=== PATIENT | female | born 1990 | race African-American/Black ===

== ENCOUNTER 2020-05-01 06:14 | Emergency (ER) | payer OTHER, BC, SELFPAY ==
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
[2020-05-01 06:18] VITALS: BP 148/101; PULSE 92; RESP 18; TEMP 36.8; O2SAT 100
--- NOTE | 2020-05-01 07:15 | PC.NURSE ---
Report taken from JUAN Solorio. Pt resting on stretcher with call light in reach.
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
[2020-05-01] MEDS: CYCLOBENZAPRINE HCL 10 MG TABLET PO (07:33)
[2020-05-01] MEDS: HYDROcodone/acetaminophen (*CRX) 5-325 MG TABLET 1 TAB PO (07:33)
[2020-05-01 07:37] VITALS: BP 138/94; PULSE 72; RESP 18; O2SAT 100
--- NOTE | 2020-05-01 07:38 | PC.NURSE ---
Pt to CT.
--- NOTE | 2020-05-01 07:56 | PC.NURSE ---
Pt returned to room from radiology. No change in pt condition noted.
[2020-05-01 08:49] VITALS: BP 134/98; PULSE 78; RESP 16; O2SAT 98
== END 2020-05-01 08:51 | disposition home or self-care (01) ==
PROVIDERS: Emergency Provider Emergency Medicine; PCP Registered Nurse
DX: S16.1XXA Strain of muscle, fascia and tendon at neck level, initial encounter (principal); J45.909 Unspecified asthma, uncomplicated; E28.2 Polycystic ovarian syndrome; Z87.440 Personal history of urinary (tract) infections; V43.52XA Car driver injured in collision with other type car in traffic accident, initial encounter
CPT/HCPCS: 70450; 72100; 72125; 99284; A9270

== ENCOUNTER 2021-01-03 20:30 | Emergency (ER) | payer BC, SELFPAY ==
[2021-01-03 20:31] VITALS: BP 143/101; PULSE 97; RESP 20; TEMP 36.3; O2SAT 96
--- NOTE | 2021-01-03 20:47 | ED.WOUNDLAC ---
HPI - Wound/Laceration General Chief Complaint: Wound/Laceration Stated Complaint: metal fence got me Time Seen by Provider: 01/03/21 20:35 Source: patient Mode of arrival: ambulatory Limitations: no limitations History of Present Illness HPI narrative: This is a 30-year-old female that presents to the emergency department for laceration to the left forearm sustained just prior to arrival. Reports she was helping her father build a fence and sustained a laceration from metal. She is unsure of her last tetanus vaccine. Reports bleeding to the area. Denies decreased range of motion or numbness. Related Data Home Medications Medication Instructions Recorded Confirmed albuterol sulfate 90 mcg/actuation 1 inhalation INHALATION Q4H 06/08/19 aerosol inhaler fluticasone 250 mcg-salmeterol 50 1 inhalation INHALATION BID 06/08/19 mcg/dose blistr powdr for inhalation ipratropium 0.5 mg-albuterol 3 mg 3 ml INHALATION QID PRN 06/08/19 (2.5 mg base)/3 mL nebulization soln montelukast 10 mg tablet 10 mg PO DAILY 06/08/19 Allergies Allergy/AdvReac Type Severity Reaction Status Date / Time fish derived Allergy Severe Hives Verified 01/03/21 20:34 White Fish Allergy Unknown Hives / Uncoded 06/01/18 04:51 Red Face Review of Systems Review of Systems: CONSTITUTIONAL: Denies fever SKIN: Reports laceration All systems reviewed & are unremarkable except as noted in HPI and below PMFSH Past Medical History Medical History Anxiety Asthma Bipolar 1 disorder Depression Eczema PCOS (polycystic ovarian syndrome) Pneumonia Skin lesion on buttock Tobacco abuse Upper respiratory tract infection UTI (urinary tract infection) Surgical History Surgical History History of surgical removal of skin lesion on buttock Family History Family History Mother Patient's mother is in good health Father Patient's father is Grandparent Family history of heart disease in male family member before age 55 Diabetes mellitus Social History Social History Smoking status: Never smoker Alcohol intake: never Gender identity (if verbalized by the patient): Female Exam Narrative: GENERAL: Well-appearing, well-nourished, and in no acute distress. HEAD: Normocephalic, atraumatic. EYES: EOMI EXTREMITIES: Normal range of motion. No edema. Left forearm with multiple superficial abrasions. Also with 3 cm linear laceration into subcutaneous tissue SKIN: Warm, dry, no rash. NEURO: No focal deficits. Alert and oriented x3. PSYCH: Normal mood and affect Course Vital Signs Vital signs: Vital Signs Temperature 97.3 F L 01/03/21 20:31 Pulse Rate 97 01/03/21 20:31 Respiratory Rate 20 01/03/21 20:31 Blood Pressure 143/101 H 01/03/21 20:31 Pulse Oximetry 96 01/03/21 20:31 Temperature 97.3 F L 01/03/21 20:31 Pulse Rate 97 01/03/21 20:31 Respiratory Rate 20 01/03/21 20:31 Blood Pressure 143/101 H 01/03/21 20:31 Pulse Oximetry 96 01/03/21 20:31 Procedures Laceration Laceration 1: Date: 01/03/21 Time: 21:29 Site: upper extremity Side (If applicable): left Size (cm): 3 Description: linear Depth: simple, single layer Local Anesthetic: lidocaine 1% and with epi Amount of anesthesia used (mL): 2 Pre-repair: irrigated ====== Skin Level ====== Skin layer closed with: nylon Size (cm): 4-0 Number of sutures: 3 Technique: simple, interrupted ====== Subcutaneous Layer ====== ====== Muscle Layer ====== ====== Tendon Layer ====== MDM - Wound/Laceration MDM Narrative Medical decision making narrative: Patient presents emergency de
--- NOTE | 2021-01-03 20:57 | PC.NURSE ---
Pt reports she accidentally cut her arm on a fence today. pt has well approximated lac to left dorsal lower arm approx. 7 cm. in length, covered c bandaid in place on arrival with dried bloody drainage. no active bleeding. Pt unsure of last tetanus shot. a/o x 4. no s/s of distress.
[2021-01-03] MEDS: TETANUS,DIPHTHERIA,AC PERTUSSIS ADULT (0.5 ML) BOOSTRIX IM (21:08)
== END 2021-01-03 22:11 | disposition home or self-care (01) ==
PROVIDERS: Emergency Provider Emergency Medicine; PCP Registered Nurse
DX: S51.812A Laceration without foreign body of left forearm, initial encounter (principal); W26.9XXA Contact with unspecified sharp object(s), initial encounter; Z23 Encounter for immunization
CPT/HCPCS: 12002; 90471; 90715; 99282

== ENCOUNTER → 2021-01-15 03:42 | Outpatient (CLI) | payer BC, SELFPAY ==
[2021-01-15 19:18] LABS: SARS-CoV-2 RNA PCR Negative
== END ==
PROVIDERS: PCP Registered Nurse; Visit Provider Registered Nurse
DX: R51.9 Headache, unspecified (principal); Z20.822 Contact with and (suspected) exposure to COVID-19
CPT/HCPCS: C9803; U0003; U0005

== ENCOUNTER 2021-05-26 06:14 | Emergency (ER) | payer BC, SELFPAY ==
--- NOTE | ~2021-05-26 | CT_ITS ---
EXAMINATION: CT brain wo con DATE: 05/26/2021 08:24 INDICATION: Headache and dizziness TECHNIQUE: Computed tomography (CT) of the head was performed without intravenous contrast. Sagittal and coronal reconstructions were performed. The mA was adjusted according to patient size. Iterative reconstruction technique was employed. The dose-length product was 681.00 mGy-cm. COMPARISON: 05/01/2020 FINDINGS: No acute intracranial hemorrhage, acute infarction or abnormal extra axial fluid collection. Ventricl es are normal and symmetric. No mass/mass effect. The orbits, paranasal sinuses and mastoid air cells are normal. IMPRESSION: 1. Normal head CT. Reviewed, dictated and finalized at location A. K DRIVER HELPER IMPRESSION: 1. Normal head CT.
[2021-05-26 06:34] VITALS: BP 106/60; PULSE 58; RESP 20; O2SAT 98
[2021-05-26 06:39] VITALS: TEMP 36.5
--- NOTE | 2021-05-26 07:26 | ECG_ITS ---
Measurements Intervals [place] Rate: 55 P: 42 SD: 190 QRS: 33 QRSD: 92 T: 31 QT: 447 QTc: 429 Interpretive Statements SINUS BRADYCARDIA WITH SINUS ARRHYTHMIA ATRIAL PREMATURE COMPLEXES BORDERLINE AV CONDUCTION DELAY BORDERLINE ECG Electronically Signed On 05-26-2021 8:48:59 VENEER MANUFACTURER by Hood Soria D.O.
--- NOTE | 2021-05-26 07:26 | ED.DIZZY ---
HPI - Dizziness General Chief Complaint: Dizziness Stated Complaint: dizziness Time Seen by Provider: 05/26/21 07:11 Source: patient Mode of arrival: ambulatory Limitations: no limitations History of Present Illness HPI Narrative: Patient is a 22-year-old female complaint of dizziness, accompanied by headache and nausea intermittent for the past 2 weeks. Patient currently denies any dizziness, nausea or headache. Patient denies any speech or visual disturbance, focal weakness or numbness, chest pain, shortness of breath, vomiting, fever or chills. Related Data Home Medications Medication Instructions Recorded Confirmed albuterol sulfate 90 mcg/actuation 1 inhalation INHALATION Q4H 06/08/19 aerosol inhaler fluticasone 250 mcg-salmeterol 50 1 inhalation INHALATION BID 06/08/19 mcg/dose blistr powdr for inhalation ipratropium 0.5 mg-albuterol 3 mg 3 ml INHALATION QID PRN 06/08/19 (2.5 mg base)/3 mL nebulization soln montelukast 10 mg tablet 10 mg PO DAILY 06/08/19 Allergies Allergy/AdvReac Type Severity Reaction Status Date / Time fish derived Allergy Severe Hives Verified 05/26/21 06:32 White Fish Allergy Unknown Hives / Uncoded 05/26/21 06:32 Red Face Review of Systems Review of Systems: All systems reviewed & are unremarkable except as noted in HPI and below Constitutional: Constitutional: Denies body ache(s), Denies chills, Denies excessive sweating, Denies fatigue, Denies fever(s), Denies headache(s), Denies lethargy, Denies malaise, Denies weakness and Denies weight loss Eyes: Eyes: Denies blurry vision, Denies change in vision and Denies loss of vision ENT: Denies dizziness, Denies ear discharge, Denies headache(s), Denies lip swelling, Denies epistaxis, Denies nasal congestion, Denies neck pain, Denies throat swelling and Denies tongue swelling Cardiovascular: Cardiovascular: Denies chest pain, Denies chest pain at rest, Denies chest pain with activity, Denies diaphoresis, Denies rapid heart rate, Denies edema, Denies irregular heart rhythm, Denies lightheadedness, Denies palpitations, Denies dyspnea and Denies dyspnea on exertion Respiratory: Respiratory: Denies chest congestion, Denies cough, Denies hemoptysis, Denies dyspnea and Denies dyspnea on exertion Gastrointestinal: Gastrointestinal: Denies abdominal pain, Denies melena, Denies hematochezia, Denies diarrhea, Denies vomiting and Denies hematemesis Musculoskeletal: Musculoskeletal: Denies abnormal gait, Denies deformity, Denies joint swelling, Denies limited range of motion, Denies neck pain and Denies numbness Neurologic: Denies Abnormal speech present, Denies abnormal gait, Denies confusion, Denies headache(s), Denies focal weakness, Denies loss of vision, Denies numbness, Denies Other visual disturbances, Denies Sensory deficit (Neuro) and Denies weakness Psychiatric: Psychiatric: Denies confusion, Denies depression, Denies auditory hallucinations, Denies homicidal ideation and Denies suicidal ideation Endocrine: Endocrine: Denies cold intolerance, Denies excessive sweating, Denies fatigue, Denies heat intolerance and Denies palpitations Hematologic/Lymphatic: Hematologic/Lymphatic: Denies easy bleeding and Denies easy bruising Allergic/Immunologic: Allergic/Immunologic: Denies lip swelling, Denies throat swelling and Denies tongue swelling PMFSH Past Medical History Medical History Anxiety Asthma Bipolar 1 disorder Depression Eczema PCOS (polycystic ovarian syndrome) Pneumonia Skin lesion on buttock Tobacco abuse Upper respiratory tract infection UTI (urinary tract infection) Surgical History Surgical History History of surgical removal of skin lesion on buttock Family History Family History Mother Patient's mother is in good health Father
[2021-05-26 07:42] LABS: Basophils Percent Auto 0.5 % (0.2-1.2); Eosinophils Absolute Auto 0.3 K/mm3 (0-0.3); Eosinophils Percent Auto 2.9 % (0-4.4); Hematocrit 39.1 % (37.0-47.0); Hemoglobin 13.1 g/dL (12.0-15.0); Immature Granulocyte Absolute 0.01 K/mm3 (0.00-0.031); Immature Granulocyte Percent A 0.1 % (0-0.5); Lymphocytes Absolute Auto 3.73 K/mm3 (0.9-3.2); Lymphocytes Percent Auto 42.6 % (18.3-44.2); Mean Corpuscular HGB Conc 33.5 g/dl (32-36); Mean Corpuscular Hemoglobin 30.4 pg (26-34); Mean Corpuscular Volume 90.7 fl (80-100); Mean Platelet Volume 8.8 fl (7.4-10.4); Monocytes Absolute Auto 0.9 K/mm3 (0.1-0.6); Monocytes Percent Auto 10.3 % (2.6-8.5); Neutrophils Absolute Auto 3.8 K/mm3 (1.3-6.7); Neutrophils Percent Auto 43.6 % (45.5-73.1); Platelet Count Result 461 k/mm3 (150-375); Red Blood Count 4.31 M/mm3 (4.2-5.4); White Blood Count 8.8 K/mm3 (4.5-10.0)
[2021-05-26 08:00] LABS: Anion Gap 10 mmol/L (8-16); Blood Urea Nitrogen 20 mg/dL (7-17); Calcium 9.1 mg/dL (8.4-10.2); Carbon Dioxide 22 mmol/L (22-30); Chloride 106 mmol/L (98-107); Estimated CRCL calculation 133 ml/min; Estimated Glomerular Filt Rate > 60; Glucose 101 mg/dL (65-110); Sodium 138 mmol/L (137-145)
[2021-05-26] MEDS: SODIUM CHLORIDE 0.9% IV 1,000 ML 999 ML IV CONT (08:36)
[2021-05-26] MEDS: MECLIZINE HCL 25 MG TABLET PO (08:36)
[2021-05-26] MEDS: PROMETHAZINE HCL 25 MG/ML AMPUL 12.5 MG IV PUSH (08:36)
[2021-05-26 08:38] VITALS: BP 142/80; PULSE 61; RESP 16; O2SAT 100
[2021-05-26 10:15] VITALS: BP 128/77; PULSE 78; RESP 20
== END 2021-05-26 10:15 | disposition home or self-care (01) ==
PROVIDERS: Emergency Provider Emergency Medicine; PCP Registered Nurse
DX: H81.10 Benign paroxysmal vertigo, unspecified ear (principal); J45.909 Unspecified asthma, uncomplicated; E28.2 Polycystic ovarian syndrome; Z87.01 Personal history of pneumonia (recurrent); Z87.440 Personal history of urinary (tract) infections; I49.1 Atrial premature depolarization
CPT/HCPCS: 36415; 70450; 80048; 81025; 85025; 93005; 96361; 96374; 99284; A9270; J2550; J7030

== ENCOUNTER 2022-04-15 11:42 | Emergency (ER) | payer OTHER, SELFPAY ==
--- NOTE | ~2022-04-15 | XR_ITS ---
XR lumbar spine 2-3V 04/15/2022 15:22 Indication: Low back pain. Radiculopathy. Procedure: 3 views lumbar spine Comparison: No prior studies for comparison. Findings: Vertebral body heights are maintained. Pedicles intact. No evidence for spondylolysis or sp ondylolisthesis. No fracture or traumatic malalignment. Impression: 1: No acute abnormality of the lumbar spine. Reviewed, dictated and finalized at location A. GEMENT SUPERVISOR Impression: 1: No acute abnormality of the lumbar spine.
[2022-04-15 11:53] VITALS: BP 136/78; PULSE 74; RESP 16; TEMP 36.9; O2SAT 99
--- NOTE | 2022-04-15 14:32 | ED.EXTPRO ---
HPI - Extremity Problem General Chief complaint: Extremity Problem,Nontraumatic Stated complaint: tingling to bilateral thighs Time Seen by Provider: 04/15/22 14:32 Source: patient Mode of arrival: ambulatory Limitations: no limitations History of Present Illness HPI Narrative: Patient is a 31-year-old female presenting to the emergency department for evaluation of lower back pain with radiation and tingling down the bilateral buttocks and thigh area. Patient denies any saddle anesthesia. No recent fall or injury. Patient has had symptoms intermittently for the past year, states that because the pain in both thighs and tingling sensation became severe today, patient decided to come to the emergency department. She has not sought care by any other physicians for her symptoms. She has been taking ibuprofen for 2 weeks with only some improvement in her symptoms. She denies difficulty with bowel or bladder, no bowel or bladder incontinence. She denies fever, chills, nausea, vomiting. She denies lower extremity weakness. She denies foot drop or difficulty with ambulation. Patient reports exacerbation of pain when leaning forwards. She reports heavy lifting daily at her job but denies inciting injury a year ago. Related Data Home Medications Medication Instructions Recorded Confirmed albuterol sulfate 90 mcg/actuation 1 inhalation inhalation Q4H 06/08/19 aerosol inhaler (ProAir HFA) fluticasone 250 mcg-salmeterol 50 1 inhalation inhalation BID 06/08/19 mcg/dose blistr powdr for inhalation (Advair Diskus) ipratropium 0.5 mg-albuterol 3 mg 3 ml inhalation QID PRN 06/08/19 (2.5 mg base)/3 mL nebulization soln montelukast 10 mg tablet 10 mg PO DAILY 06/08/19 Allergies Allergy/AdvReac Type Severity Reaction Status Date / Time fish derived Allergy Severe Hives Verified 05/26/21 06:32 White Fish Allergy Unknown Hives / Uncoded 05/26/21 06:32 Red Face Review of Systems Review of Systems: CONSTITUTIONAL: Denies fever, chills, or sweats. ENT: Denies rhinorrhea, congestion, sore throat, or otalgia. CARDIOVASCULAR: Denies chest pain, palpitations, or edema. RESPIRATORY: Denies cough or dyspnea. GASTROINTESTINAL: Denies abdominal pain, nausea, vomiting, or diarrhea. GENITOURINARY: Denies dysuria or hematuria. SKIN: Denies rash or itching. MUSCULOSKELETAL: Reports lower back pain, reports tingling to lateral aspect of both thighs. Denies foot pain or foot drop. NEUROLOGIC: Denies headache, numbness, or weakness. [facility] Past Medical History Medical History Anxiety Asthma Bipolar 1 disorder Depression Eczema PCOS (polycystic ovarian syndrome) Pneumonia Skin lesion on buttock Tobacco abuse Upper respiratory tract infection UTI (urinary tract infection) Surgical History Surgical History History of surgical removal of skin lesion on buttock Family History Family History Mother Patient's mother is in good health Father Patient's father is Grandparent Family history of heart disease in male family member before age 55 Diabetes mellitus Social History Social History Smoking status: Never smoker Alcohol intake: never Gender identity (if verbalized by the patient): Female Exam Narrative: GENERAL: Awake, alert, conversant HEAD: Normocephalic, atraumatic. EYES: PERRLA and EOMI. ENT: Nares clear, no rhinorrhea or epistaxis. Mucous membranes moist. NECK: Supple. CHEST: No respiratory distress, breathing even and non labored HEART: Regular rate, sinus rhythm ABDOMEN:Non distended, non tender Thorax: No midline cervical or midline thoracic tenderness. Patient has lumbar paraspinal tenderness bilaterally and bilateral SI joint tenderness that exactly reproduc
[2022-04-15] MEDS: ACETAMINOPHEN 500 MG TABLET 1000 MG PO (15:53)
[2022-04-15] MEDS: diazePAM (*CRX) 5 MG TABLET PO (15:54)
[2022-04-15] MEDS: KETOROLAC (*BKC) 60 MG/2 ML VIAL 30 MG IM (15:54)
== END 2022-04-15 16:06 | disposition home or self-care (01) ==
PROVIDERS: Emergency Provider Emergency Medicine; PCP Registered Nurse
DX: M54.16 Radiculopathy, lumbar region (principal); J45.909 Unspecified asthma, uncomplicated; E28.2 Polycystic ovarian syndrome; Z87.01 Personal history of pneumonia (recurrent); Z87.440 Personal history of urinary (tract) infections
CPT/HCPCS: 72100; 96372; 99283; A9270; J1100; J1885

== ENCOUNTER 2023-01-24 09:09 | Emergency (ER) | payer OTHER, SELFPAY ==
[2023-01-24] VITALS (21 sets, daily range): BP systolic 127–150; BP diastolic 57–98; PULSE 67–132; RESP 15–18; TEMP 36.4; O2SAT 97–100
--- NOTE | ~2023-01-24 | CT_ITS ---
EXAMINATION: CT abdomen pelvis w con DATE: 01/24/2023 12:03 INDICATION: Abdomen pain and diarrhea. TECHNIQUE: Computed tomography (CT) of the abdomen and pelvis was performed with 100 cc Omnipaque 350 intravenous contrast. The dose-length product was 1549.12 mGy-cm. Automated exposure control and ite rative reconstruction technique were employed. COMPARISON: CT dated 07/04/2012. FINDINGS: Lung bases are unremarkable. Heart size normal. Fatty infiltration of the liver. The spleen , pancreas, adrenal glands and kidneys are unremarkable. Small fat-containing umbilical hernia. Nonob structive bowel gas pattern. No significant vascular abnormality. There i multiple nonenlarged retrop eritoneal lymph nodes, likely reactive. No free air or free fluid. IMPRESSION: 1. No acute abdominal abnormality. 2: Hepatic steatosis. Reviewed, dictated and finalized at location B.
[2023-01-24 10:13] LABS: Basophils Absolute Auto 0.1 K/mm3 (0.0-0.1); Basophils Percent Auto 0.6 % (0.2-1.2); Eosinophils Absolute Auto 0.2 K/mm3 (0-0.3); Hematocrit 41.8 % (37.0-47.0); Hemoglobin 13.5 g/dL (12.0-15.0); Immature Granulocyte Absolute 0.02 K/mm3 (0.00-0.031); Immature Granulocyte Percent A 0.2 % (0-0.5); Lymphocytes Absolute Auto 2.68 K/mm3 (0.9-3.2); Lymphocytes Percent Auto 30.4 % (18.3-44.2); Mean Corpuscular HGB Conc 32.3 g/dl (32-36); Mean Corpuscular Hemoglobin 29.7 pg (26-34); Mean Corpuscular Volume 92.1 fl (80-100); Mean Platelet Volume 8.4 fl (7.4-10.4); Monocytes Absolute Auto 0.8 K/mm3 (0.1-0.6); Monocytes Percent Auto 8.5 % (2.6-8.5); Neutrophils Absolute Auto 5.1 K/mm3 (1.3-6.7); Neutrophils Percent Auto 58.3 % (45.5-73.1); Platelet Count Result 390 k/mm3 (150-375); Red Blood Count 4.54 M/mm3 (4.2-5.4); Red Cell Distribution Width 12.7 % (11.5-14.5); White Blood Count 8.8 K/mm3 (4.5-10.0)
--- NOTE | 2023-01-24 10:18 | ED.NAVMDI ---
HPI - Nausea/Vomiting/Diarrhea General Chief complaint: Nausea/Vomiting/Diarrhea Stated complaint: flu symptoms Time Seen by Provider: 01/24/23 09:52 Source: patient Mode of arrival: ambulatory Limitations: no limitations History of Present Illness HPI Narrative: This is a 32 year old female that presents to the ER for epigastric pain. Ongoing over the last couple of days. Associated with nausea, vomiting and diarrhea. Reports her stools have been darker than usual. She does report she has taken some pepto bismol. Reports lightheadedness and feeling dehydrated. Denies fever, dysuria or hematuria. Related Data Home Medications Medication Instructions Recorded Confirmed albuterol sulfate 90 mcg/actuation 1 inhalation inhalation Q4H 06/08/19 aerosol inhaler (ProAir HFA) fluticasone 250 mcg-salmeterol 50 1 inhalation inhalation BID 06/08/19 mcg/dose blistr powdr for inhalation (Advair Diskus) ipratropium 0.5 mg-albuterol 3 mg 3 ml inhalation QID PRN 06/08/19 (2.5 mg base)/3 mL nebulization soln montelukast 10 mg tablet 10 mg PO DAILY 06/08/19 Allergies Allergy/AdvReac Type Severity Reaction Status Date / Time fish derived Allergy Severe Hives Verified 01/24/23 09:56 White Fish Allergy Unknown Hives / Uncoded 01/24/23 09:56 Red Face Review of Systems Review of Systems: CONSTITUTIONAL: Denies fever GASTROINTESTINAL: Reports abdominal pain, nausea, vomiting, and diarrhea. GENITOURINARY: Denies dysuria or hematuria. All systems reviewed & are unremarkable except as noted in HPI and below PMFSH Past Medical History Medical History (Updated 01/24/23 @ 14:42 by Yumiko Waddell PA-C) Anxiety Asthma Bipolar 1 disorder Depression Eczema PCOS (polycystic ovarian syndrome) Pneumonia Skin lesion on buttock Upper respiratory tract infection UTI (urinary tract infection) Surgical History Surgical History History of surgical removal of skin lesion on buttock Family History Family History Mother Patient's mother is in good health Father Patient's father is Grandparent Family history of heart disease in male family member before age 55 Diabetes mellitus Social History Social History Smoking status: Never smoker Alcohol intake: never Gender identity (if verbalized by the patient): Female Exam Narrative: GENERAL: Well-appearing, well-nourished, and in no acute distress. HEAD: Normocephalic, atraumatic. EYES: EOMI. ENT: Nares clear, no rhinorrhea or epistaxis. Mucous membranes moist. Oropharynx without tonsillar hypertrophy exudate or other lesions. Bilateral TMs pearly tapia non-bulging NECK: Supple. No adenopathy or masses. CHEST: Clear to auscultation. No respiratory distress. No wheezes rales or rhonchi HEART: Regular rate and rhythm. No murmur heard. Normal peripheral pulses. ABDOMEN: Soft, nondistended, normal active bowel sounds. Tender to palpation in the epigastrium, without guarding EXTREMITIES: Normal range of motion. No edema. SKIN: Warm, dry, no rash. NEURO: No focal deficits. Alert and oriented x3. Normal gait PSYCH: Normal mood and affect RECTAL: No hemorrhoids or fissures noted. Hemoccult negative Course Course Emergency Course: Patient and family updated on work-up and agree with plan of care Vital Signs Vital signs: Vital Signs Temperature 97.6 F 01/24/23 09:42 Pulse Rate 67 01/24/23 09:42 Respiratory Rate 18 01/24/23 09:42 Blood Pressure 150/91 H 01/24/23 09:42 Pulse Oximetry 100 01/24/23 09:42 Oxygen Delivery Room Air 01/24/23 09:42 Temperature 97.6 F 01/24/23 09:42 Pulse Rate 99 01/24/23 12:59 Respiratory Rate 18 01/24/23 10:12 Blood Pressure 132/77 01/24/23 13:32 Pulse Oximetry 99 01/24/23 13:18 Oxygen Delivery Room
[2023-01-24] MEDS: SODIUM CHLORIDE 0.9% IV 1,000 ML 999 ML IV CONT ×2 (10:41→13:55)
[2023-01-24] MEDS: ONDANSETRON INJ 4 MG/2 ML VIAL IV PUSH (10:41)
[2023-01-24] MEDS: PANTOPRAZOLE SODIUM IV 40 MG VIAL IV PUSH (10:41)
[2023-01-24 10:43] LABS: Appearance Urine Cloudy (Clear); Bacteria Urine Rare /hpf; Bilirubin Urine Negative (Negative); Blood Urine Negative (Negative); Color Urine Yellow (Yellow); Glucose Urine UA Negative (Negative); Ketones Urine Negative (Negative); Leukocyte Esterase Ur Negative LEU/UL (Negative); Nitrate Urine Negative (Negative); Non Pathogenic Casts 0-2; Protein Urine Negative (Negative); Specific Grav Ur 1.022 (1.001-1.035); Squamous Epithelial Cell Urine None seen /hpf (Few); Urobilinogen Urine 0.2 mg/dL (<2.0); WBC Urine 0-5 /hpf; pH Urine 6.5 (5.0-9.0)
[2023-01-24 10:50] LABS: Add Urine Microscopic? YES
[2023-01-24 10:52] LABS: Influenza A QL RT-PCR Negative (Negative); Influenza B QL RT-PCR Negative (Negative); SARS-CoV-2 RNA PCR Negative (Negative)
[2023-01-24 11:44] LABS: Alanine Aminotransferase 25 U/L (6-35); Alkaline Phosphatase 73 U/L (38-126); Anion Gap 8 mmol/L (8-16); Aspartate Amino Transferase 22 U/L (14-36); Bilirubin,Total 0.3 mg/dL (0.2-1.3); Blood Urea Nitrogen 14 mg/dL (7-17); Calcium 8.9 mg/dL (8.4-10.2); Carbon Dioxide 25 mmol/L (22-30); Chloride 105 mmol/L (98-107); Estimated CRCL calculation 129 ml/min; Estimated Glomerular Filt Rate > 60; Glucose 99 mg/dL (65-110); Lipase 55 U/L (23-300); Potassium 4.3 mmol/L (3.4-5.0); Sodium 138 mmol/L (137-145)
--- NOTE | 2023-01-24 11:55 | PC.NURSE ---
pt leaving floor to CT @[id number]
[2023-01-24 12:03] LABS: Pregnancy On Board Control Positive; Urine Pregnancy Test Negative
--- NOTE | 2023-01-24 12:06 | PC.NURSE ---
pt back to floor from CT @[id number]
--- NOTE | 2023-01-24 12:10 | PC.NURSE ---
unable to complete orthostat bp readings at this time. pt has feeling of the room spinning and does not feel comfortable standing at this time. vitals wnl and provider notified.
[2023-01-24] MEDS: MECLIZINE HCL 25 MG TABLET PO (13:55)
== END 2023-01-24 14:54 | disposition home or self-care (01) ==
PROVIDERS: Emergency Provider Physician Assistant; PCP Registered Nurse
DX: R10.13 Epigastric pain (principal); R42 Dizziness and giddiness; Z79.51 Long term (current) use of inhaled steroids; J45.909 Unspecified asthma, uncomplicated; Z20.822 Contact with and (suspected) exposure to COVID-19
CPT/HCPCS: 36415; 74177; 80053; 81001; 81025; 83690; 85025; 87636; 96361; 96374; 96375; 99284; A9270; C9113; J2405; J7030; Q9967

== ENCOUNTER 2023-10-10 19:34 | Emergency (ER) | payer OTHER, SELFPAY ==
--- NOTE | ~2023-10-10 | XR_ITS ---
[id number] 10/10/2023 20:19 INDICATION: Left knee pain PROCEDURE: 2 views left knee COMPARISON: No prior studies for comparison. FINDINGS: Fracture, dislocation or subluxation is not identified. No significant joint effusion. Mild osteoarthritis. The soft tissues appear within normal limits. No foreign bodies are identified. IMPRESSION: 1: NO ACUTE BONE OR JOINT ABNORMALITY IDENTIFIED. Reviewed, dictated and finalized at location A.
[2023-10-10 19:52] VITALS: BP 136/82; PULSE 84; RESP 16; TEMP 36.2; O2SAT 100
--- NOTE | 2023-10-10 21:19 | ED.EXTPRO ---
HPI - Extremity Problem General Chief complaint: Extremity Problem,Nontraumatic Stated complaint: L knee pain Time Seen by Provider: 10/10/23 20:18 History of Present Illness HPI Narrative: He 33-year-old female presents emergency department for left knee pain for 3 days. 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 States she came home and took a nap and woke up with the pain to her left knee. Denies history of knee pain, any surgeries or procedures to her left knee. States she has on her feet a lot for her work. States it hurts when she bears item is her knee area she has not taken anything for pain. Denies any known injury or trauma. No fever. Related Data Home Medications Medication Instructions Recorded Confirmed albuterol sulfate 90 mcg/actuation 1 inhalation inhalation Q4H 06/08/19 aerosol inhaler (ProAir HFA) fluticasone 250 mcg-salmeterol 50 1 inhalation inhalation BID 06/08/19 mcg/dose blistr powdr for inhalation (Advair Diskus) ipratropium 0.5 mg-albuterol 3 mg 3 ml inhalation QID PRN 06/08/19 (2.5 mg base)/3 mL nebulization soln montelukast 10 mg tablet 10 mg PO DAILY 06/08/19 Allergies Allergy/AdvReac Type Severity Reaction Status Date / Time fish derived Allergy Severe Hives Verified 01/24/23 09:56 White Fish Allergy Unknown Hives / Uncoded 01/24/23 09:56 Red Face Review of Systems Review of Systems: CONSTITUTIONAL: Denies fever, chills, or sweats. EYES: Denies visual changes, redness, or discharge. ENT: Denies rhinorrhea, congestion, sore throat, or otalgia. CARDIOVASCULAR: Denies chest pain, palpitations, or edema. RESPIRATORY: Denies cough or dyspnea. GASTROINTESTINAL: Denies abdominal pain, nausea, vomiting, or diarrhea. GENITOURINARY: Denies dysuria or hematuria. SKIN: Denies rash or itching. MUSCULOSKELETAL: See HPI NEUROLOGIC: Denies headache, numbness, dizziness, or weakness. PSYCHIATRIC: Denies anxiety or depression. [facility] Past Medical History Medical History Anxiety Asthma Bipolar 1 disorder Depression Eczema PCOS (polycystic ovarian syndrome) Pneumonia Skin lesion on buttock Upper respiratory tract infection UTI (urinary tract infection) Surgical History Surgical History History of surgical removal of skin lesion on buttock Family History Family History Mother Patient's mother is in good health Father Patient's father is Grandparent Family history of heart disease in male family member before age 55 Diabetes mellitus Social History Social History Smoking status: Never smoker Alcohol intake: never Gender identity (if verbalized by the patient): Female Exam Narrative: GENERAL: Well-appearing, well-nourished, and in no acute distress. Obese with a BMI 51 HEAD: Normocephalic, atraumatic. EYES: PERRLA and EOMI. ENT: Nares clear, no rhinorrhea or epistaxis. CHEST: No respiratory distress. Clear to auscultation. No wheezes rales or rhonchi HEART: Regular rate and rhythm. No murmur heard. Normal peripheral pulses. MSK: RLE: Diffuse tenderness to the knee without obvious deformity or edema. No overlying erythema, no warmth to the knee. Limited active range of motion due to pain. Full passive range of motion. Pain with anterior drawer,, posterior drawer, there is an about the stress. No tenderness to the remainder of the lower extremity including hip and tib-fib. DP pulse 2 +. Sensation intact. SKIN: Warm, dry, no rash. NEURO: Alert and oriented x3. No focal deficits. PSYCH: Normal mood and affect. Course Vital Signs Vital signs: Vital Signs Temperature 97.2 F L 10/10/23 19:52 Pulse Rate 84 10/10/23 19:52 Respiratory Rate 16
[2023-10-10] MEDS: HYDROcodone/acetaminophen (*CRX) 5-325 MG TABLET 1 TAB PO (21:22)
== END 2023-10-10 21:45 | disposition home or self-care (01) ==
PROVIDERS: Emergency Provider Physician Assistant; PCP Registered Nurse
DX: M25.562 Pain in left knee (principal); J45.909 Unspecified asthma, uncomplicated; E28.2 Polycystic ovarian syndrome; Z87.01 Personal history of pneumonia (recurrent); Z87.440 Personal history of urinary (tract) infections; Z79.899 Other long term (current) drug therapy
CPT/HCPCS: 73560; 99283; A9270

== ENCOUNTER 2024-08-21 09:13 | Emergency (ER) | payer OTHER, SELFPAY ==
[2024-08-21 09:21] VITALS: BP 151/91; PULSE 57; RESP 18; TEMP 36.7; O2SAT 100
--- NOTE | 2024-08-21 09:43 | ECG_ITS ---
Test Date: 2024-08-21 09:55:59 Measurements Intervals [place] Rate: 55 P: 42 [place]: 182 QRS: 43 QRSD: 97 T: 46 QT: 451 QTc: 432 Interpretive Statements SINUS BRADYCARDIA WITH MARKED SINUS ARRHYTHMIA NORMAL ECG No previous ECG available for comparison Electronically Signed On 08-21-2024 10:16:25 CDT by Hood Soria D.O.
--- OUTSIDE RECORDS SUMMARY | 2024-08-21 09:56 | XMS_ITS | Encounter Summary ---
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 Legal Sex Female 7:15 PM CDT Gender Identity Not on file Sexual Orientation Not on file documented as of this encounter Plan of Treatment Not on file documented as of this encounter Visit Diagnoses Not on filedocumented in this encounter Additional Health Concerns Infection Onset Date Last Indicated Resolved Time COVID-19 Rule Out 01/13/2021 01/13/2021 01/20/2021 12:35 AM CDT COVID-19 Rule Out 09/02/2023 09/02/2023 09/02/2023 2:26 PM CDT documented as of this encounter Care Teams Regional Truck Driver Relationship Specialty Start Date End Date Samara Kirby APNP [address] [place] [id number] PCP - General NURSE PRACTITIONER 07/06/19 documented as of this encounter
--- OUTSIDE RECORDS SUMMARY | 2024-08-21 09:56 | XMS_ITS | Encounter Summary ---
Author Organization [facility] Address [address] [place] [address] Care Team Providers Care Blending Plant Operator Name Role Phone Samara Kirby Primary Care Provider [phone] Encounter Details Date Type Department Care Team (Late st Contact Info) Description 11/10/2022 MyChart Message Enc [facility] [address] [place], [place] [address] [employer], [facility] Provider Air Quality Message Social History Tobacco Use Types Packs/Day Years Used Date Smoking Tobacco: Never Smokeless Tobacco: Never Alcohol Use Standard Drinks/Week Comments No 0 (1 standard drink = 0.6 oz pur e alcohol) AUDIT-C Answer Date Recorded Frequency of Alcohol Consumption Never 08/03/2018 Average Number of Drinks Not on file 019 Frequency of Binge Drinking Not on file 07/15 PHQ-2 Answer Date Recorded PHQ-2 Score - If the patient scores above 3, please move on to questions 3-9 2 12/15/2021 Comments No Sex and Gender Information Value Date Recorded Sex Assigned at Female 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/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 Sex Female 7:15 PM CDT Gender Identity Not on file Sexual Orientation Not on file documented as of this encounter Plan of Treatment Not on file documented as of this encounter Visit Diagnoses Not on filedocumented in this encounter Additional Health Concerns Infection Onset Date Last Indicated Resolved Time COVID-19 Rule Out 09/02/2023 09/02/2023 09/02/2023 2:26 PM CDT Assessment Noted Time PHQ-9 Depression Total Score: 14 022 1:45 PM CDT documented as of this encounter Care Teams Blending Plant Operator Relationship Specialty Start Date End Date aSmara Kirby APNP [address] [place] [id number] PCP - General NURSE PRACTITIONER 07/06/19 documented as of this encounter
--- OUTSIDE RECORDS SUMMARY | 2024-08-21 09:56 | XMS_ITS | Clinical Summary ---
Author Organization [facility] Address [address] [address] Care Team Providers Care Contracts Attorney Name Role Phone Rahat Rosenberg MD Primary Care Provider [phone] Source Comments [facility],non-owned Affiliates and Associated Physician Practices is amultiple site organization consisting of ambulatory clinics and hospital sitesin [place], [place], [place] and [place]. This disclosure is being madepursuant to the Care Everywhere program and may not contain all information available regarding this patient. Last updated 18.[facility] Social History Tobacco Use Types Packs/Day Years Used Date Smoking Tobacco: Never Assessed Sex and Gender Information Value Date Recorded Sex Assigned at Not on file Gender Identity Not on file Sexual Orientation Not on file Last Filed Vital Signs Vital Sign Reading Time Taken Comments Blood Pressure 127/85 01/04/2013 10:32 PM CDT Pulse 63 01/04/2013 10:32 PM CDT Temperature 36.6 C (97.9 F) 01/04/2013 10:32 PM CDT Respiratory Rate 16 01/04/2013 10:32 PM CDT Oxygen Saturation 99% 01/04/2013 10:32 PM CDT Inhaled Oxygen Concentration - - Weight 113.4 kg (250 lb) 01/04/2013 10:32 PM CDT Height 162.6 cm (5' 4 ) 01/04/2013 10:32 PM CDT Body Mass Index 42.91 01/04/2013 10:32 PM CDT Plan of Treatment Health Maintenance Due Date Last Done Comments PAP SMEAR 1992 HIV SCREENING 2007 HEPATITIS C SCREENING 06/15/2010 DTAP/TDAP/TD VACCINES (1 - Tdap) 2011 HEPATITIS B VACCINE (1 of 3 - 19+ 3-dose series) 2011 COVID-19 VACCINE (1 - 2023-2 5 season) 2024 DEPRESSION SCREENING 05/16/2024 INFLUENZA VACCINE (Season Ended) 2025 ZOSTER VACCINE (1 of 2) 2042 HIB VACCINE Aged Out No longer eligi ble based on patient's age to complete this topic HPV VACCINE Aged Out No longer eligi ble based on patient's age to complete this topic MENINGOCOCCAL (Group B) VACC INE SHARED DECISION-MAKING Aged Out No longer eligibl e based on patient's age to complete this topic MENINGOCOCCAL GROUPS A/C/Y/W VACCINE Aged Out No longer eligible b ased on patient's age to complete this topic PNEUMOCOCCAL VACCINE Aged Out No long er eligible based on patient's age to complete this topic Care Teams Contracts Attorney Relationship Specialty Start Date End Date Rahat Rosenberg MD [address] [place] [id number] PCP - General 02/12/22
--- OUTSIDE RECORDS SUMMARY | 2024-08-21 09:56 | XMS_ITS | Encounter Summary ---
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
--- OUTSIDE RECORDS SUMMARY | 2024-08-21 09:56 | XMS_ITS | Encounter Summary ---
Author Organization [facility] Address [address] [place] [address] Care Team Providers Care General Foreman Name Role Phone Samara Kirby Primary Care Provider [phone] Encounter Details Date Type Department Care Team (Late st Contact Info) Description 07/26/2024 Liquid Health Labst Message Enc [facility] Medical [facility] Family & Internal Medicine [facility] [address] [place] [address] Samara Kirby APNP [facility] [place], [place] [id number] Mammogram Social History Tobacco Use Types Packs/Day Years Used Date Smoking Tobacco: Never Smokeless Tobacco: Never Alcohol Use Standard Drinks/Week Comments No 0 (1 standard drink = 0.6 oz pur e alcohol) AUDIT-C Answer Date Recorded Frequency of Alcohol Consumption Never 08/03/2018 Average Number of Drinks Not on file 019 Frequency of Binge Drinking Not on file 07/15 PHQ-2 Answer Date Recorded Patient Health Questionnaire-2 Score 0 07/11/2024 Comments No Sex and Gender Information Value Date Recorded Sex Assigned at Female 07/11/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
--- OUTSIDE RECORDS SUMMARY | 2024-08-21 09:56 | XMS_ITS | Clinical Summary ---
Author Organization [facility] Address [address] [place] [address] Care Team Providers Care Rag Production Worker Name Role Phone Aubrey Kirby Primary Care Provider [phone] Allergies Active Allergy Reactions Criticality Noted Date Comments Fish-Derived Products Hives 07/25/2020 Medications montelukast 10 MG tabletIndications: Moderate persistent asthma without complication (HHS/HCC),Seasonal allergies Take 1 tablet (10 mg total) by mouth every evening. 90 tablet 07/26/19 21 Active Insulin Pen Needle (PEN NEEDLES) 31G X 5 MM MiscIndications:BM I 45.0-49.9, adult ([facility]),Class 3 severe obesity due to excess calories without serious comorbidity with body mass index (BMI) of 45.0 to 49.9 in adult ([facility]) Use daily with saxenda 100 each 1 10/22/19 21 Active Additional Information Patient not taking.Reported on 07/11/2024 fluticasone-salmet nelda (ADVAIR DISKUS) 250-50 MCG/ACT inhalerIndications :Moderate persistent asthma without complication (HHS/HCC) Inhale 1 puff into the lungs 2 (two) times daily. 1 each 3 06/16/19 24 Active triamcinolone (KENALOG) 0.1 % ointmentIndication s:Dermatitis Apply topically 2 (two) times daily. 80 g 03/23/20 24 Active albuterol sulfate HFA (PROAIR HFA) 108 (90 Base) MCG/ACT inhalerIndications :Moderate persistent asthma without complication (HHS/HCC) Inhale 2 puffs into the lungs every 6 (six) hours as needed for Wheezing. 18 g 2 03/23/20 24 Active ondansetron (ZOFRAN-ODT) 4 MG disintegrating tabletIndications: Nausea Take 1 tablet (4 mg total) by mouth every 8 (eight) hours as needed for Nausea. 20 tablet 05/03/20 24 Active ipratropium-albute rol (DUONEB) 0.5-2.5 (3) MG/3ML SolutionIndication s:Moderate persistent asthma without complication (HHS/HCC) USE 1 AMPULE IN NEBULIZER TWICE DAILY NEEDED 360 mL 05/03/20 24 Active doxycycline hyclate (VIBRAMYCIN) 100 MG capsuleIndications :Hidradenitis suppurativa Take 1 capsule (100 mg total) by mouth daily. 30 capsule 2 05/03/20 24 Active fluticasone propionate (FLONASE) 50 MCG/ACT nasal sprayIndications:S easonal allergies 2 sprays by Each Nostril route daily. 15.8 mL 1 08/11/19 25 Active methylPREDNISolone , KIMBERLY, (MEDROL DOSEPAK) 4 MG tabletIndications: Seasonal allergies,Chest congestion 6 TABLETS ON DAY ONE, 5 TABLETS DAY TWO, 4 TABLETS DAY THREE, 3 TABLETS DAY FOUR, 2 TABLETS DAY FIVE, AND 1 TABLET DAY SIX 1 each 08/11/19 25 Active fluticasone propionate 50 MCG/ACT nasal sprayIndications:S easonal allergies 2 sprays by Each Nostril route daily. 15.8 mL 1 07/26/19 21 025 Discontinu ed(Reorder ) azithromycin (ZITHROMAX Z-KIMBERLY) 250 MG tabletIndications: Chest congestion,Acute cough Take 2 tablets by mouth on day one then 1 daily for four days. 6 tablet 08/11/19 25 025 Active Problems Problem Noted Date Diagnosed Date Hidradenitis suppurativa 01/29/2022 COVID-19 01/01/2022 Asthma (HHS/HCC) 07/06/2019 BMI 50.0-59.9, adult 07/06/2019 Encounters Date Type Department Care Team Description 08/10/2024 Telephone [facility] [address] [phone] Aubrey Kirby APNP Medication 08/03/2024 Scan HEALTH INFO [facility] Scanned, [facility] 07/27/2024 Telephone [facility] [address] [phone] Aubrey Kirby APNP Referral 07/26/2024 6:50 AM CDT - 07/26/2024 11:59 PM CDT Hospital Encounter [facility] [address] [place] [address] Aubrey Kirby APNP Discharge Disposition: Home or Self Care (Routine Discharge) 07/26/2024 Apieronhart Message Enc [address] [phone] Aubrey Kirby APNP Mammogram 07/26/[address] [phone] Aubrey Kirby APNP Results 07/26/[address] [phone] Aubrey Kirby APNP Referral; Information 07/26/2024 Travel 07/13/[address] [phone] Aubrey Kirby APNP Results 07/11/2024 2:00 PM HAZARDOUS MATERIAL TECHNICIAN Office Visit [address] [phone] Aubrey Kirby APNP Breast Problem (Pt c/o pus/blood discharge from right nipple x 1 month.) 07/11/2024 - 07/11/2024 11:59 PM HAZARDOUS MATERIAL TECHNICIAN Hospital [facility] [address] [place] [address] Aubrey Kirby APNP Discharge Disposition: Home or Self Care (Routine Discharge) 07/11/2024 Telephone [facility] Internal [facility] [address] [phone] Aubrey Kirby APNP Orders 07/11/2024 Travel from Last 3 Months Immunizations Name Administration Dates Next Due Pneumococcal (Pneumovax 23) 01/02/2014 Tdap (Generic) 01/03/2021,03/30/2014 Family History Medical History Relation Comments Asthma Maternal Grandfather COPD Maternal Grandfather Cancer Maternal Grandfather prostate Hyperlipidemia Maternal Grandfather Hypertension Maternal Grandfather Stroke Maternal Grandfather Ovarian Cancer Maternal Grandmother DVT Mother Diabetes Paternal Grandmother Heart Attack Paternal Grandmother Relation Status Comments Maternal Grandfather Maternal Grandmother Mother Paternal Grandmother Social History Tobacco Use Types Packs/Day Years Used Date Smoking Tobacco: Never Smokeless Tobacco: Never Tobacco Cessation:Counseling Given: No Alcohol Use Standard Drinks/Week Comments No 0 [...] Sex Assigned at Female 07/11/2024 2:07 PM HAZARDOUS MATERIAL TECHNICIAN Legal Sex Female 7:15 PM CDT Gender Identity Not on file Sexual Orientation Not on file Last Filed Vital Signs Vital Sign Reading Time Taken Comments Blood Pressure 122/72 07/11/2024 2:07 PM HAZARDOUS MATERIAL TECHNICIAN Pulse 80 07/11/2024 2:07 PM HAZARDOUS MATERIAL TECHNICIAN Temperature 36.7 C (98 F) 07/11/2024 2:07 PM HAZARDOUS MATERIAL TECHNICIAN Respiratory Rate 16 07/11/2024 2:07 PM HAZARDOUS MATERIAL TECHNICIAN Oxygen Saturation 97% 07/11/2024 2:07 PM HAZARDOUS MATERIAL TECHNICIAN Inhaled Oxygen Concentration - - Weight 137.9 kg (304 lb) 07/11/2024 2:07 PM HAZARDOUS MATERIAL TECHNICIAN Height 165.1 cm (5' 5 ) 07/11/2024 2:07 PM HAZARDOUS MATERIAL TECHNICIAN Body Mass Index 50.59 07/11/2024 2:07 PM HAZARDOUS MATERIAL TECHNICIAN Plan of Treatment Health Maintenance Due Date Last Done Comments Hepatitis C 2010 Hepatitis B Vaccines (1 of 3 - 19+ 3-dose series) 2011 Cervical Cancer Screening Pa p Smear (Age 30 to 64) Every 3 Years 01/01/2021 01/01/2018 Cervical Cancer Screening Pa p with HPV Testing (Age 30 to 64) Every 5 Years 2022 Annual Physical 12/15/2022 12/15/2021, 07/06/2019 Cervical Cancer Screening with HPV 09/11/2024 Postponed from 01/01 (Patient Refused) Pneumococcal Vaccine: Pediatrics (0 to 5 Years) and At-Risk Patients (6 to 64 Years) (2 of 2 - PCV) 10/16/2024 01/02/2014 Postponed from (Patient Refused) COVID-19 Vaccine ( - 2023-2 5 season) 2025 Postponed from 01/14 (Patient Refused) DTaP, Tdap and Td Vaccines ( 3 - Td or Tdap) 01/03/2031 01/03/2021, 03/30/2014 PHQ-2 ([facility]) Completed 07/11/2024 HPV Vaccines Aged Out No longer eligi ble based on patient's age to complete this topic Meningococcal B Vaccine Aged Out No l onger eligible based on patient's age to complete this topic Meningococcal Vaccine Aged Out No domingo yari eligible based on patient's age to complete this topic RSV Immunizations Under 20 Months Aged Out No longer eligible b ased on patient's age to complete this topic Procedures Procedure Name Priority Date/Time Associated Diagnosis Comments US BREAST RT [employer] Routine 07/26/2024 8:38 AM CDT Nipple discharge MG DIAG W BASIL BILAT DIGI Routine 07/26/2024 7:20 AM CDT Nipple discharge COLLECTION VENOUS BLOOD VENIPUNCTURE Routine 07/11/2024 2:40 PM HAZARDOUS MATERIAL TECHNICIAN Nipple discharge PROLACTIN Routine 07/11/2024 2:40 PM HAZARDOUS MATERIAL TECHNICIAN Nipple discharge OUTSIDE CYTOPATH CERV/VAG INTERPRET (PAP) (SCAN ORDER) Routine 01/01/2018 from Last 3 Months or Most Recently Relevant to Health Maintenance Results * US BREAST RT [employer] (07/26/2024 8:38 AM CDT) Anatomical Region Laterality Modality Breast Right Ultrasound 07/26/2024 9:02 AM CDT Impressions 07/26/2024 9:48 AM CDT =====IMPRESSION:===== 1. Single dilated duct in the lateral retroareolar region, 9:00 sector is conspicuous. Given the history of nipple discharge, this is indeterminate and further workup/biopsy is recommended. Consider first obtaining breast MRI to assess for an occult intraductal lesion and guide biopsy. 2. Superficial 2.1 cm mass in the 6:00, 13 cm coordinates is indeterminate. Biopsy recommended. ASSESSMENT: ACR BI-RADS 4B - MODERATE SUSPICION FOR MALIGNANCY (Between 11% to 50% Likelihood) Recommendation: 1: Biopsy should be considered Right Ordered By: AUBREY KIRBY Interpreted By: Scotty Cazares MD, 07/26/2024 9:02 AM Narrative 07/26/2024 9:48 AM CDT [facility] [address] [place] [address] EXAMINATION: Digital bilateral diagnostic mammogram with 3-D tomography; right breast ultrasound [id number] EXAM DATE/TIME: 07/26/2024 7:03 AM REASON FOR EXAM: nipple discharge, bloody at times. Patient reports episodes of bloody nipple discharge over the last 3.5 weeks, primarily when manually expressed. Also report history of hidradenitis suppurativa. Previous bilateral breast reduction. COMPARISON: 02/05/2011 TECHNIQUE: Digital diagnostic mammography of both breasts was performed in addition to 3-D Tomosynthesis technique. This study was read with the assistance of a computer-aided detection system. Right breast ultrasound was performed. TISSUE DENSITY: There are scattered areas of fibroglandular density. FINDINGS: Mammogram findings: The breast mineral pattern is grossly symmetric. On the right, there is a focal asymmetry in the lower outer quadrant, posterior depth. This is just deep to the skin. Left breast is relatively unremarkable. Scattered benign- appearing indications are noted. No suspicious calcifications, architectural distortion or skin thickening. Ultrasound findings: -In the retroareolar region, there is a single prominent duct extending laterally in the 9:00 sector. Internal hypoechogenic complex material is noted. Given the single conspicuous duct, this is somewhat suspicious and further workup is recommended. -Additional scanning inferiorly reveals a hypoechoic superficial mass in the 6 clock sector, 13 cm from the nipple measuring 2.1 x 1.5 x 0.6 cm. This is located within or just below the dermis layer. Possible sebaceous cyst or small abscess. However, there is some blood flow within the posterior aspect and solid lesion is not excluded. Therefore, biopsy is recommended. Procedure Note [place], Scotty Riggins MD - 07/26/2024 [facility] [place] [address] EXAMINATION: Digital bilateral diagnostic mammogram with 3-D tomography;right breast ultrasound [id number] EXAM DATE/TIME: 07/26/2024 7:03 AM REASON FOR EXAM: nipple discharge, bloody at times. Patient reportsepisodes of bloody nipple discharge over the last 3.5 weeks, primarilywhen manually expressed. Also report history of hidradenitis suppurativa.Previous bilateral breast reduction. COMPARISON: 02/05/2011 TECHNIQUE: Digital diagnostic mammography of both breasts was performed inaddition to 3-D Tomosynthesis technique. This study was read with theassistance of a computer-aided detection system. Right breast ultrasoundwas performed. TISSUE DENSITY: There are scattered areas of fibroglandular density. FINDINGS: Mammogram findings: The breast mineral pattern is grossly symmetric. Onthe right, there is a focal asymmetry in the lower outer quadrant,posterior depth. This is just deep to the skin. Left breast is relativelyunremarkable. Scattered benign- appearing indications are noted. Nosuspicious calcifications, architectural distortion or skin thickening. Ultrasound findings: -In the retroareolar region, there is a single prominent duct extendinglaterally in the 9:00 sector. Internal hypoechogenic complex material isnoted. Given the single conspicuous duct, this is somewhat suspicious andfurther workup is recommended. -Additional scanning inferiorly reveals a hypoechoic superficial mass inthe 6 clock sector, 13 cm from the nipple measuring 2.1 x 1.5 x 0.6 cm.This is located within or just below the dermis layer. Possible sebaceouscyst or small abscess. However, there is some blood flow within theposterior aspect and solid lesion is not excluded. Therefore, biopsy isrecommended. =====IMPRESSION:===== 1. Single dilated duct in the lateral retroareolar region, 9:00 sector isconspicuous. Given the history of nipple discharge, this is indeterminateand further workup/biopsy is recommended. Consider first obtaining breastMRI to assess for an occult intraductal lesion and guide biopsy. 2. Superficial 2.1 cm mass in the 6:00, 13 cm coordinates isindeterminate. Biopsy recommended. ASSESSMENT: ACR BI-RADS 4B - MODERATE SUSPICION FOR MALIGNANCY (Omdxfmz41% to 50% Likelihood) Recommendation: 1: Biopsy should be considered Right Ordered By: AUBREY KIRBY Interpreted By: Scotty Cazares MD, 07/26/2024 9:02 AM us Aubrey Kirby APNP ULTRASOUND Final Resul t * MG DIAG W BASIL BILAT DIGI (07/26/2024 7:20 AM CDT) Anatomical Region Laterality Modality Breast Bilateral Mammography 07/26/2024 9:02 AM CDT Impressions 07/26/2024 9:48 AM CDT =====IMPRESSION:===== 1. Single dilated duct in the lateral retroareolar region, 9:00 sector is conspicuous. Given the history of nipple discharge, this is indeterminate and further workup/biopsy is recommended. Consider first obtaining breast MRI to assess for an occult intraductal lesion and guide biopsy. 2. Superficial 2.1 cm mass in the 6:00, 13 cm coordinates is indeterminate. Biopsy recommended. ASSESSMENT: ACR BI-RADS 4B - MODERATE SUSPICION FOR MALIGNANCY (Between 11% to 50% Likelihood) Recommendation: 1: Biopsy should be considered Right Ordered By: AUBREY KIRBY Interpreted By: Scotty Cazares MD, 07/26/2024 9:02 AM Narrative 07/26/2024 9:48 AM CDT [facility] [address] [place] [address] EXAMINATION: Digital bilateral diagnostic mammogram with 3-D tomography; right breast ultrasound [id number] EXAM DATE/TIME: 07/26/2024 7:03 AM REASON FOR EXAM: nipple discharge, bloody at times. Patient reports episodes of bloody nipple discharge over the last 3.5 weeks, primarily when manually expressed. Also report history of hidradenitis suppurativa. Previous bilateral breast reduction. COMPARISON: 02/05/2011 TECHNIQUE: Digital diagnostic mammography of both breasts was performed in addition to 3-D Tomosynthesis technique. This study was read with the assistance of a computer-aided detection system. Right breast ultrasound was performed. TISSUE DENSITY: There are scattered areas of fibroglandular density. FINDINGS: Mammogram findings: The breast mineral pattern is grossly symmetric. On the right, there is a focal asymmetry in the lower outer quadrant, posterior depth. This is just deep to the skin. Left breast is relatively unremarkable. Scattered benign- appearing indications are noted. No suspicious calcifications, architectural distortion or skin thickening. Ultrasound findings: -In the retroareolar region, there is a single prominent duct extending laterally in the 9:00 sector. Internal hypoechogenic complex material is noted. Given the single conspicuous duct, this is somewhat suspicious and further workup is recommended. -Additional scanning inferiorly reveals a hypoechoic superficial mass in the 6 clock sector, 13 cm from the nipple measuring 2.1 x 1.5 x 0.6 cm. This is located within or just below the dermis layer. Possible sebaceous cyst or small abscess. However, there is some blood flow within the posterior aspect and solid lesion is not excluded. Therefore, biopsy is recommended. Aubrey DÍAZ MAMMO Final Resul t * PROLACTIN (07/11/2024 2:40 PM HAZARDOUS MATERIAL TECHNICIAN) PROLACTIN 15.9 2.2 - 30.3 NG/ML 07/11/2024 9:32 PM HAZARDOUS MATERIAL TECHNICIAN [facility] Comment: ASSAY PERFORMED BY CHEMILUMINESCENCE METHODOLOGY USING [facility] REAGENT. PATIENT RESULTS DETERMINED BY ASSAYS USING DIFFERENT MANUFACTURERS FOR METHODS MAY NOT BE COMPARABLE. 07/11/2024 2:40 PM HAZARDOUS MATERIAL TECHNICIAN Aubrey DÍAZ LABORATORY Final Resul t Performing Organization Address [facility] Co de Phone Number [facility] [address] [place] [address], [phone] * PAP SMEAR (01/01/2018) 01/01/2018 Documents Scanned SCANNING Edited Result - Final Performing Organization Address City/[facility]/ZIP Co de Phone Number [facility] [place] from Last 3 Months or Most Recently Relevant to Health [place] [address] [place] [address] [facility] Care Teams Rag Production Worker Relationship Specialty Start Date End Date Aubrey Kirby APNP [address] [place] [id number] PCP - General NURSE PRACTITIONER 07/06/19
[2024-08-21 10:06] VITALS: BP 140/72; PULSE 53; RESP 18; O2SAT 99
[2024-08-21 10:09] LABS: BEDSIDEPREGUCG Negative (Negative)
[2024-08-21 10:15] LABS: Basophils Percent Auto 0.4 % (0.2-1.2); Eosinophils Absolute Auto 0.1 K/mm3 (0-0.3); Eosinophils Percent Auto 1.5 % (0-4.4); Hemoglobin 14.9 g/dL (12.0-15.0); Immature Granulocyte Absolute 0.02 K/mm3 (0.00-0.031); Immature Granulocyte Percent A 0.2 % (0-0.5); Lymphocytes Percent Auto 34.4 % (18.3-44.2); Mean Corpuscular HGB Conc 33.1 g/dl (32-36); Mean Corpuscular Hemoglobin 29.7 pg (26-34); Mean Corpuscular Volume 89.8 fl (80-100); Mean Platelet Volume 8.2 fl (7.4-10.4); Monocytes Absolute Auto 0.8 K/mm3 (0.1-0.6); Monocytes Percent Auto 9.6 % (2.6-8.5); Neutrophils Absolute Auto 4.4 K/mm3 (1.3-6.7); Neutrophils Percent Auto 53.9 % (45.5-73.1); Platelet Count Result 424 k/mm3 (150-375); Red Blood Count 5.01 M/mm3 (4.2-5.4); Red Cell Distribution Width 13.2 % (11.5-14.5); White Blood Count 8.1 K/mm3 (4.5-10.0)
[2024-08-21 10:32] LABS: Alanine Aminotransferase 18 U/L (6-35); Albumin Level 4.4 g/dL (3.5-5.1); Alkaline Phosphatase 76 U/L (38-126); Anion Gap 10 mmol/L (4-12); Aspartate Amino Transferase 23 U/L (14-36); Bilirubin,Total 0.6 mg/dL (0.2-1.3); Blood Urea Nitrogen 6 mg/dL (7-17); Calcium 9.4 mg/dL (8.4-10.2); Carbon Dioxide 22 mmol/L (22-30); Chloride 105 mmol/L (98-107); Estimated CRCL calculation 117 ml/min; Estimated Glomerular Filt Rate > 60; Glucose 102 mg/dL (65-110); Lipase 36 U/L (23-300); Potassium 4.2 mmol/L (3.4-5.0); Sodium 137 mmol/L (137-145)
[2024-08-21 10:33] VITALS: BP 121/72; PULSE 63
[2024-08-21 10:36] VITALS: BP 139/103; PULSE 82
[2024-08-21 10:42] LABS: Add Urine Microscopic? NO; Appearance Urine Clear (Clear); Bilirubin Urine Negative (Negative); Blood Urine Negative (Negative); Color Urine Yellow (Yellow); Glucose Urine UA Negative (Negative); Ketones Urine 1+ mg/dL (Negative); Leukocyte Esterase Ur Negative LEU/UL (Negative); Nitrate Urine Negative (Negative); Protein Urine Negative (Negative); Specific Grav Ur 1.014 (1.001-1.035); Urobilinogen Urine 0.2 mg/dL (<2.0)
--- NOTE | 2024-08-21 10:43 | PC.NURSE ---
Pt refused to stand when doing ortho, when i was doing the sitting ortho pt started to get alittle sick
[2024-08-21 10:52] VITALS: BP 134/74; PULSE 52; RESP 20; O2SAT 98
--- NOTE | 2024-08-21 10:55 | ED_ITS ---
HPI - Dizziness General Chief Complaint: Dizziness Stated Complaint: dizzy, abd pain Time Seen by Provider: 08/21/24 10:39 Source: patient and other (girlfriend) Mode of arrival: ambulatory Limitations: no limitations History of Present Illness HPI Narrative: Patient presents with dizziness and headache. She is experiencing constant nausea and feels shaky. Has been vomiting. No fever but will get sweaty. Experiencing tinnitus in R ear. Notices when she turns her head she has symptoms so holding it still. Also having photosensitivity. No chest pain or shortness of breath. Intermittent LUQ abdominal pain. Took Tylenol at home which got her some relief from symptoms. States the dizziness is like a merry go round. LBM yesterday, no diarrhea. LMP end of Mach. Related Data Home Medications ?Medication ?Instructions ?Recorded ?Confirmed ?Last Taken ?Type albuterol sulfate 90 mcg/actuation 1 inhalation inhalation Q4H 06/08/19 Unknown History aerosol inhaler (ProAir HFA) fluticasone 250 mcg-salmeterol 50 1 inhalation inhalation BID 06/08/19 Unknown History mcg/dose blistr powdr for inhalation (Advair Diskus) ipratropium 0.5 mg-albuterol 3 mg 3 ml inhalation QID PRN 06/08/19 Unknown History (2.5 mg base)/3 mL nebulization soln montelukast 10 mg tablet 10 mg PO DAILY 06/08/19 Unknown History Allergies Allergy/AdvReac Type Severity Reaction Status Date / Time fish derived Allergy Severe Hives Verified 08/21/24 09:32 White Fish Allergy Unknown Hives / Uncoded 08/21/24 09:32 Red Face PMFSH Past Medical History Medical History Upper respiratory tract infection Eczema Skin lesion on buttock Anxiety Depression Bipolar 1 disorder UTI (urinary tract infection) PCOS (polycystic ovarian syndrome) Pneumonia Asthma Surgical History Surgical History History of surgical removal of skin lesion on buttock Family History Family History Mother Patient's mother is in good health Father Patient's father is Grandparent Family history of heart disease in male family member before age 55 Diabetes mellitus Social History Social History Smoking status: Never smoker Alcohol intake: never Gender identity (if verbalized by the patient): Female Exam 2 Narrative: GENERAL: well-nourished HEAD: Normocephalic, atraumatic. EYES: Non injected, non icteric. EOMI w/o vertical or horizontal nystagmus. ENT: Nares clear, no rhinorrhea or epistaxis. B/l tympanic membranes easily visualized w/o erythema, bulging, vesicles, effusion. NECK: Holding head still but otherwise supple, not held in fixed flexion or extension, only trying to limit rotational movement. CHEST: Speaking in full sentences. No respiratory distress. HEART: Regular rate and rhythm. . ABDOMEN: Obese but Soft, nondistended. EXTREMITIES: Normal range of motion. No lower extremity edema. SKIN: Warm, dry, no rash. NEURO: No focal deficits. Alert and oriented x3. PSYCH: Normal mood and affect. Course Vital Signs Vital signs: Vital Signs Temperature 98.1 F 08/21/24 09:21 Pulse Rate 57 L 08/21/24 09:21 Respiratory Rate 18 08/21/24 09:21 Blood Pressure 151/91 H 08/21/24 09:21 Pulse Oximetry 100 08/21/24 09:21 Oxygen Delivery Room Air 08/21/24 09:21 Temperature 98.1 F 08/21/24 09:21 Pulse Rate 53 L 08/21/24 11:29 Respiratory Rate 21 H 08/21/24 11:29 Blood Pressure 120/65 08/21/24 11:29 Pulse Oximetry 100 08/21/24 11:29 Oxygen Delivery Room Air 08/21/24 09:21 MDM - Dizziness MDM Narrative Medical decision making narrative: Patient presents with dizziness reported as being like a merry go round. Associated with constant nausea, some emesis, and right ear tinnitus. Made worse with head movements so has been trying to hold it still. Also having headaches and photosensitivity without fevers. In the emergency department she is afebrile with vital signs notable for hypertension and bradycardia. VERTIGO DIFFERENTIAL DIAGNOSIS Central causes: infection ( encephalitis, meningitis, cerebritis); vertebrobasilar arterial insufficiency, subclavian steal syndrome, cerebellar or brainstem hemorrhage or infarction, vertebrobasilar migraine, trauma ( temporal bone fracture, post concussive syndrome); tumor (brainstem or cerebellum); MS; temporal lobe epilepsy Peripheral causes: Foreign body, cerumen impaction, acute otitis media, labyrinthitis, benign paroxysmal positional vertigo, Meniere's disease (though patient's age does not support this), vestibular neuronitis, perilymphatic fistula, trauma, motion sickness, acoustic neuroma, ototoxic medications HEADACHE DIFFERENTIAL DIAGNOSES: Benign etiology such as migraine/tension/cluster. Also considered SAH/EDH, meningitis (though afebrile and head movement is limited rotationally not flexion/extension), less likely temporal arteritis, acute angle glaucoma, carbon monoxide poisoning COnsidered viral etiologies. Although not all symptoms fit with BPPV, several do and she reports that turning her head exacerbates symptoms so will trial meclizine. Deferring imaging at this time. test negative. Thrombocytosis chronic. Patient reassessed approximately 12 15. She states her nausea and and dizziness and headache are resolved. No abdominal pain. She has been able to turn her head without having symptoms. The lights are turned on and she is no longer experiencing the extreme photophobia. She does note that she is having some jaw pain from clenching with the frequent dry heaving earlier. Will give a small dose of Valium especially given her prior dizziness; confirmed partner can drive/provide transportation. Advised follow up with PCP and given ED return precautions. Will prescribe meclizine to use at home. Patient also requesting Zofran per RN at the time of discharge. This is done electronically but I did advise nurse to inform patient that these medications can have similar effects in some respects. Lab Data Attestation: I reviewed the patient's lab results. 08/21/24 10:06 08/21/24 10:06 Labs: Lab Results 08/21/24 08/21/24 Range/Units 10:06 11:26 WBC 8.1 (4.5-10.0) K/mm3 RBC 5.01 (4.2-5.4) M/mm3 Hgb 14.9 (12.0-15.0) g/dL Hct 45.0 (37.0-47.0) % MCV 89.8 (80-100) fl MCH 29.7 (26-34) pg MCHC 33.1 (32-36) g/dl RDW 13.2 (11.5-14.5) % Plt Count 424 H (150-375) k/mm3 MPV 8.2 (7.4-10.4) fl Immature Gran % (Auto) 0.2 (0-0.5) % Neut % (Auto) 53.9 (45.5-73.1) % Lymph % (Auto) 34.4 (18.3-44.2) % [place] % (Auto) 9.6 H (2.6-8.5) % Eos % (Auto) 1.5 (0-4.4) % Baso % (Auto) 0.4 (0.2-1.2) % Lymph # (Auto) 2.80 (0.9-3.2) K/mm3 [place] # (Auto) 0.8 H (0.1-0.6) K/mm3 Eos # (Auto) 0.1 (0-0.3) K/mm3 Baso # (Auto) 0.0 (0.0-0.1) K/mm3 Abs Immat Gran (auto) 0.02 (0.00-0.031) K/mm3 Absolute Neuts (auto) 4.4 (1.3-6.7) K/mm3 Absolute Nucleated RBC 0.000 (0.0-0.012) K/mm3 Nucleated RBC % 0.0 (0.0-0.2) % Sodium 137 (137-145) mmol/L Potassium 4.2 (3.4-5.0) mmol/L Chloride 105 (98-107) mmol/L Carbon Dioxide 22 (22-30) mmol/L Anion Gap 10 (4-12) mmol/L BUN 6 L D (7-17) mg/dL Creatinine 0.83 (0.7-1.0) mg/dL Estim Creat Clear Calc 117 ml/min Estimated GFR > 60 (59 - ) Glucose 102 (65-110) mg/dL Calcium 9.4 (8.4-10.2) mg/dL Total Bilirubin 0.6 (0.2-1.3) mg/dL AST 23 (14-36) U/L ALT 18 (6-35) U/L Alkaline Phosphatase 76 (38-126) U/L Total Protein 9.0 H (6.3-8.2) g/dL Albumin 4.4 (3.5-5.1) g/dL Lipase 36 (23-300) U/L Urine Color Yellow (Yellow) Urine Appearance Clear (Clear) Urine pH 7.0 (5.0-9.0) Ur Specific [place] 1.014 (1.001-1.035) Urine Protein Negative (Negative) mg/dL Urine Glucose (UA) Negative (Negative) mg/dL Urine Ketones 1+ H (Negative) mg/dL Ur Blood (Man) Negative (Negative) Urine Nitrate Negative (Negative) Urine Bilirubin Negative (Negative) Urine Urobilinogen 0.2 (<2.0) mg/dL Leukocyte Esterase Rfl Negative (Negative) CHRISTEN/UL POC Urine HCG, Qual Negative (Negative) Influenza A (RT-PCR) Negative (Negative) Influenza B (RT-PCR) Negative (Negative) RSV (RT-PCR) Negative (Negative) SARS-CoV-2 RNA (RT-PCR) Negative (Negative) ECG Data EKG #1: Attestation: I personally reviewed and interpreted this ECG as follows: ECG completion date: 08/21/24 ECG completion time: 09:55 Interpretation: Sinus bradycardia at a rate of 55 beats per minute. There is R to R variation consistent with sinus arrhythmia although without abnormal features. No pauses. WV interval 182. QRS 97. QT/QTC 451/439. Good R-wave progression across the precordial leads. No T-wave inversions. Discharge Plan Discharge Clinical Impression: Thrombocytosis, Benign paroxysmal positional vertigo of right ear, Tinnitus, right ear Patient Disposition: Home Condition: Stable Instructions: Antibiotic Form, Benign Paroxysmal Positional Vertigo (DC), Dizziness (ED), Tinnitus (ED) Additional Instructions: As we discussed, your symptoms do sound consistent with BPPV and you responded well to a medication that works on that and are prescribed the same. Rest and maintain your hydration. Your viral swab was negative for COVID, influenza a, influenza B, and RSV. Follow-up with primary care physician. Return to the emergency department any new or worsening symptoms. Patient Language: [place] Arabian Prescriptions: New meclizine 25 mg tablet,chewable 12.5 mg PO TID PRN (Reason: dizziness) Qty: 30 0RF ondansetron 4 mg tablet,disintegrating 4 mg PO Q8H PRN (Reason: nausea and vomiting) Qty: 7 0RF No Action fluticasone propion-salmeterol [Advair Diskus] 250-50 mcg/dose blister with device 1 inhalation INHALATION BID ipratropium-albuterol 0.5 mg-3 mg(2.5 mg base)/3 mL solution for nebulization 3 ml INHALATION QID PRN montelukast 10 mg tablet 10 mg PO DAILY albuterol sulfate [ProAir HFA] 90 mcg/actuation HFA aerosol inhaler 1 inhalation INHALATION Q4H cyclobenzaprine 10 mg tablet 10 mg PO TID PRN (Reason: muscle spasm) Qty: 20 0RF ibuprofen 600 mg tablet 600 mg PO QID PRN (Reason: pain) Qty: 30 0RF meclizine 25 mg tablet 25 mg PO TID PRN (Reason: dizziness) Qty: 12 0RF acetaminophen 500 mg capsule 500 mg PO Q6H PRN (Reason: fever or pain) Qty: 30 0RF diazepam 5 mg tablet 5 mg PO HS PRN (Reason: pain, moderate) 10 Days Qty: 10 0RF lidocaine 4 % adhesive patch,medicated 1 patch TOPICAL Q24H PRN (Reason: pain) 10 Days Qty: 10 0RF Rx Instructions: may leave on for up to 12 hrs ibuprofen 400 mg tablet 400 mg PO TID PRN (Reason: fever or pain) 10 Days Qty: 30 0RF methylprednisolone [Medrol (Ru)] 4 mg tablets,dose pack See Rx Instructions .ROUTE .COMPLEX Qty: 21 0RF Rx Instructions: orally per package directions pantoprazole [Protonix] 40 mg tablet,delayed release (DR/EC) 40 mg PO HS 28 Days Qty: 28 0RF hydrocodone-acetaminophen 5-325 mg tablet 1 tablet PO Q8H PRN (Reason: pain) Qty: 7 0RF Follow-up/Referrals: Mirta,APRIL Pascual [Primary Care Provider] - Stand Alone Forms: Work/School Release IP Time of Disposition: 12:38
[2024-08-21] MEDS: ONDANSETRON INJ 4 MG/2 ML VIAL IV PUSH (11:27)
[2024-08-21] MEDS: MECLIZINE HCL 25 MG TABLET PO (11:27)
[2024-08-21] MEDS: FAMOTIDINE 20 MG/2 ML VIAL IV PUSH (11:27)
[2024-08-21 11:29] VITALS: BP 120/65; PULSE 53; RESP 21; O2SAT 100
--- OUTSIDE RECORDS SUMMARY | 2024-08-21 12:06 | XMS_ITS | Encounter Summary ---
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
--- OUTSIDE RECORDS SUMMARY | 2024-08-21 12:06 | XMS_ITS | Encounter Summary ---
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
--- OUTSIDE RECORDS SUMMARY | 2024-08-21 12:06 | XMS_ITS | Clinical Summary ---
Author Organization [facility] Address [address] [facility] [place] [address] Care Team Providers Care Carbon Cutter Name Role Phone Rahat Rosenberg MD Primary Care Provider [phone] Source Comments [facility],non-owned Affiliates and Associated Physician Practices is amultiple site organization consisting of ambulatory clinics and hospital sitesin [place], [place], [place] and [place]. This disclosure is being madepursuant to the Care Everywhere program and may not contain all information available regarding this patient. Last updated 18.[facility] Social History Tobacco Use Types Packs/Day Years [...] age to complete this topic Care Teams Carbon Cutter Relationship Specialty Start Date End Date Rahat Rosenberg MD [address] [place] [phone] PCP - General 02/12/22
--- OUTSIDE RECORDS SUMMARY | 2024-08-21 12:06 | XMS_ITS | Encounter Summary ---
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
--- OUTSIDE RECORDS SUMMARY | 2024-08-21 12:06 | XMS_ITS | Encounter Summary ---
Author Organization [facility] Address [address] [place] [address] Care Team Providers Care Senior Sales Operations Analyst Name Role Phone Samara Kirby Primary Care Provider [phone] Encounter Details Date Type Department Care Team (Late st Contact Info) Description 07/26/2024 [facility] Message Enc [facility] Family & Internal Medicine [facility] [address] [place] [phone] Samara Kirby APNP [facility] [place] [place], [place] [id number] Mammogram Social History Tobacco Use Types Packs/Day [...] Sex Assigned at Female 07/11/2024 2:07 PM AD OPERATIONS ASSOCIATE Legal Sex Female 7:15 PM CDT Gender Identity Not on file Sexual Orientation Not on file documented as of this encounter Plan of Treatment Not on file documented as of this encounter Visit Diagnoses Not on filedocumented in this encounter Additional Health Concerns Assessment Noted Time PHQ-9 Depression Total Score: 0 09/02/19 24 1:32 PM CDT documented as of this encounter Care Teams Senior Sales Operations Analyst Relationship Specialty Start Date End Date Samara Kirby APNP [facility] [place] [place] [address] PCP - General NURSE PRACTITIONER 07/06/19 documented as of this encounter
--- OUTSIDE RECORDS SUMMARY | 2024-08-21 12:06 | XMS_ITS | Clinical Summary ---
Author Organization [facility] Address [address] [place] [address] Care Team Providers Care Director Nicu Name Role Phone Aubrey Kirby Primary Care Provider [phone] Allergies Active Allergy Reactions Criticality Noted Date Comments Fish-Derived Products Hives 07/25/2020 Medications montelukast 10 MG tabletIndications: Moderate persistent asthma without complication (HHS/HCC),Seasonal allergies Take 1 tablet (10 mg total) by mouth every evening. 90 tablet 07/26/19 21 Active Insulin Pen Needle (PEN NEEDLES) 31G X 5 MM MiscIndications:BM I 45.0-49.9, adult ([facility]),Class 3 severe obesity due to excess calories without serious comorbidity with body mass index (BMI) of 45.0 to 49.9 in adult ([facility]) Use daily with saxenda 100 [...] Type Department Care Team Description 08/10/2024 Telephone [facility] Medical [facility] Family & Internal Medicine [address] [phone] Aubrey Kirby APNP Medication 08/03/2024 Scan HEALTH INFO SRVCS Scanned, Doc Med Group 07/27/2024 Telephone [facility] [address] [phone] Aubrey Kirby APNP Referral 07/26/2024 6:50 AM CDT - 07/26/2024 11:59 PM CDT Hospital Encounter [facility] [address] [address] Aubrey Kirby APNP Discharge Disposition: Home or Self Care (Routine Discharge) 07/26/[address] [employer] Message Enc [address] [phone] Aubrey Kirby APNP Mammogram 07/26/[address] [phone] Aubrey Kirby APNP Results 07/26/[address] [phone] Aubrey Kirby APNP Referral; Information 07/26/2024 Travel 07/13/[address] [phone] Aubrey iKrby APNP Results 07/11/2024 2:00 PM JANITORIAL SERVICES SUPERVISOR Office Visit [address] [phone] Aubrey Kirby APNP Breast Problem (Pt c/o pus/blood discharge from right nipple x 1 month.) 07/11/2024 - 07/11/2024 11:59 PM JANITORIAL SERVICES SUPERVISOR Hospital [facility] [address] [place] [address] Aubrey Kirby APNP Discharge Disposition: Home or Self Care (Routine Discharge) 07/11/2024 Telephone [facility] Internal Medicine [address] [phone] Aubrey Kirby APNP Orders 07/11/2024 [...] Sex Assigned at Female 07/11/2024 2:07 PM JANITORIAL SERVICES SUPERVISOR Legal Sex Female 7:15 PM CDT Gender Identity Not on file Sexual Orientation Not on file Last Filed Vital Signs Vital Sign Reading Time Taken Comments Blood Pressure 122/72 07/11/2024 2:07 PM JANITORIAL SERVICES SUPERVISOR Pulse 80 07/11/2024 2:07 PM JANITORIAL SERVICES SUPERVISOR Temperature 36.7 C (98 F) 07/11/2024 2:07 PM JANITORIAL SERVICES SUPERVISOR Respiratory Rate 16 07/11/2024 2:07 PM JANITORIAL SERVICES SUPERVISOR Oxygen Saturation 97% 07/11/2024 2:07 PM JANITORIAL SERVICES SUPERVISOR Inhaled Oxygen Concentration - - Weight 137.9 kg (304 lb) 07/11/2024 2:07 PM JANITORIAL SERVICES SUPERVISOR Height 165.1 cm (5' 5 ) 07/11/2024 2:07 PM JANITORIAL SERVICES SUPERVISOR Body Mass Index 50.59 07/11/2024 2:07 PM JANITORIAL SERVICES SUPERVISOR Plan of Treatment Health Maintenance Due Date [...] Td or Tdap) 01/03/2031 01/03/2021, 03/30/2014 PHQ-2 ([facility]) Completed 07/11/2024 HPV Vaccines Aged Out No [...] Date/Time Associated Diagnosis Comments US BREAST RT i3 membraneAD LTD Routine 07/26/2024 8:38 AM CDT Nipple discharge MG DIAG W BASIL BILAT DIGI Routine 07/26/2024 7:20 AM CDT Nipple discharge COLLECTION VENOUS BLOOD VENIPUNCTURE Routine 07/11/2024 2:40 PM JANITORIAL SERVICES SUPERVISOR Nipple discharge PROLACTIN Routine 07/11/2024 2:40 PM JANITORIAL SERVICES SUPERVISOR Nipple discharge OUTSIDE CYTOPATH CERV/VAG INTERPRET (PAP) (SCAN ORDER) Routine 01/01/2018 from Last 3 Months or Most Recently Relevant to Health Maintenance Results * US BREAST RT i3 membraneAD LTD (07/26/2024 8:38 AM CDT) Anatomical Region [...] 9:02 AM Narrative 07/26/2024 9:48 AM CDT [facility] [address] [place] [address] EXAMINATION: Digital bilateral diagnostic mammogram with 3-D tomography; right breast ultrasound [id number] EXAM DATE/TIME: 07/26/2024 7:03 AM REASON FOR [...] excluded. Therefore, biopsy is recommended. Procedure Note Deweese, Scotty Riggins MD - 07/26/2024 [facility] [address] [place] [address] EXAMINATION: Digital bilateral diagnostic mammogram with 3-D tomography;right breast ultrasound [id number] EXAM DATE/TIME: 07/26/2024 7:03 AM REASON FOR [...] BI-RADS 4B - MODERATE SUSPICION FOR MALIGNANCY (Hzykjgj90% to 50% Likelihood) Recommendation: 1: Biopsy should [...] 9:02 AM Narrative 07/26/2024 9:48 AM CDT [facility] [address] [place] [address] EXAMINATION: Digital bilateral diagnostic mammogram with 3-D tomography; right breast ultrasound [id number] EXAM DATE/TIME: 07/26/2024 7:03 AM REASON FOR [...] Resul t * PROLACTIN (07/11/2024 2:40 PM JANITORIAL SERVICES SUPERVISOR) PROLACTIN 15.9 2.2 - 30.3 NG/ML 07/11/2024 9:32 PM JANITORIAL SERVICES SUPERVISOR [facility] Comment: ASSAY PERFORMED BY CHEMILUMINESCENCE METHODOLOGY USING [place] [place] [facility]. PATIENT RESULTS DETERMINED BY ASSAYS USING DIFFERENT MANUFACTURERS FOR METHODS MAY NOT BE COMPARABLE. 07/11/2024 2:40 PM JANITORIAL SERVICES SUPERVISOR Aubrey [facility] Final Resul t Performing Organization Address [facility] Co de Phone Number [facility] [address] [place] [address], [phone] * PAP SMEAR (01/01/2018) 01/01/2018 Documents Scanned SCANNING Edited Result - Final Performing Organization Address City/[facility]/ZIP Co de Phone Number [facility] from Last 3 Months or Most Recently Relevant to Health [place] [address] [facility] Care Teams Director Nicu Relationship Specialty Start Date End Date Aubrey Kirby APNP [address] [place] [address] PCP - General NURSE PRACTITIONER 07/06/19
[2024-08-21 12:22] LABS: Influenza A QL RT-PCR Negative (Negative); Influenza B QL RT-PCR Negative (Negative); RSV RNA, RT-PCR Negative (Negative); SARS-CoV-2 RNA PCR Negative (Negative)
[2024-08-21] MEDS: diazePAM (*CRX) 5 MG TABLET 2.5 MG PO (13:11)
== END 2024-08-21 13:26 | disposition home or self-care (01) ==
PROVIDERS: Physician Assistant; Emergency Provider Student in an Organized Health Care Education/Training Program; PCP Registered Nurse
DX: D75.839 Thrombocytosis, unspecified (principal); H81.10 Benign paroxysmal vertigo, unspecified ear; H93.11 Tinnitus, right ear; R00.1 Bradycardia, unspecified; Z20.822 Contact with and (suspected) exposure to COVID-19; F41.9 Anxiety disorder, unspecified; F32.A Depression, unspecified; Z87.440 Personal history of urinary (tract) infections; J45.909 Unspecified asthma, uncomplicated
CPT/HCPCS: 36415; 80053; 81003; 81025; 83690; 85025; 87637; 93005; 96374; 96375; 99284; A9270; J2405